=== PATIENT | male | born 1990 | race Caucasian/White ===

== ENCOUNTER → 2019-12-29 | Day surgery (SDC) | payer OTHER ==
[~2019-12-29] MED LIST: BUPIVACAINE 0.25% 30ML SDV INJ ONE; DEXAMETHASONE SOD PHOS 10 MG/1 ML VIAL ONE; FENTANYL CITRATE/PF 100MCG/2 ML INJ ONE; IOPAMIDOL 200 MG/ML 20 ML VIAL IT ONE; LIDOCAINE HCL 1% 30ML-PF VIAL ONE; MIDAZOLAM HCL 5 MG/ML VIAL ONE; PROPOFOL IV EMULSION 10 MG/ML 20 ML VIAL ONE; TYLENOL #4 PO
[2019-12-29 07:30] VITALS: BP 141/98
== END | disposition home or self-care (01) ==
LOC: OR 05:33
PROVIDERS: ATTEND Physical Medicine & Rehabilitation Pain Medicine
DX: M54.16 Radiculopathy, lumbar region (principal); R93.7 Abnormal findings on diagnostic imaging of other parts of musculoskeletal system; F17.210 Nicotine dependence, cigarettes, uncomplicated; Z01.812 Encounter for preprocedural laboratory examination; Z11.59 Encounter for screening for other viral diseases; Z68.36 Body mass index [BMI] 36.0-36.9, adult
CPT/HCPCS: 64483; 87635; J1100; J2001; J2250; J2704; J3010; Q9967; 77003

== ENCOUNTER → 2020-10-25 | Day surgery (SDC) | payer OTHER ==
[~2020-10-25] MED LIST changes: -BUPIVACAINE 0.25% 30ML SDV INJ ONE; +IBUPROFEN400 MG PO; -PROPOFOL IV EMULSION 10 MG/ML 20 ML VIAL ONE; +TYLENOL PO
[2020-10-25 07:15] VITALS: BP 131/94
== END | disposition home or self-care (01) ==
LOC: OR 05:21
PROVIDERS: ATTEND Physical Medicine & Rehabilitation Pain Medicine
DX: M54.16 Radiculopathy, lumbar region (principal); Z01.812 Encounter for preprocedural laboratory examination; Z20.822 Contact with and (suspected) exposure to COVID-19; Z68.38 Body mass index [BMI] 38.0-38.9, adult
CPT/HCPCS: 64483; J1100; J2001; J2250; J3010; Q9967; U0002; 77003